=== PATIENT | male | born 1985 | race African-American/Black ===

== ENCOUNTER 2021-08-19 08:19 | Outpatient (CLI) | payer BC ==
[2021-08-20 06:36] LABS: SARS-CoV-2 NAA Rapid Test Not Detected (NotDetected)
== END 2021-08-19 08:20 | disposition home or self-care (01) ==
LOC: CSHLAB 08:19
PROVIDERS: ATTEND Internal Medicine Critical Care Medicine
DX: Z20.822 Contact with and (suspected) exposure to COVID-19 (principal)
CPT/HCPCS: U0002

== ENCOUNTER 2021-08-20 10:30 | Outpatient (CLI) | payer BC | END 2021-08-20 10:31 | disposition home or self-care (01) | LOC: CSHCP 10:30 | PROVIDERS: ATTEND Internal Medicine Critical Care Medicine | DX: J45.909 Unspecified asthma, uncomplicated (principal) | CPT/HCPCS: 94060; 94726; 94729; 94760 ==